=== PATIENT | male | born 1980 | race Caucasian/White ===

== ENCOUNTER → 2017-06-17 | Outpatient (CLI) | payer BC, OTHER | END | disposition home or self-care (01) | LOC: GMAJ 14:27 | PROVIDERS: ATTEND Family Medicine | DX: Z00.00 Encounter for general adult medical examination without abnormal findings (principal) ==

== ENCOUNTER → 2018-07-20 | Outpatient (CLI) | payer BC | LOC: GMAJ 15:11 | PROVIDERS: ATTEND Family Medicine | DX: E03.9 Hypothyroidism, unspecified (principal); E29.1 Testicular hypofunction ==

== ENCOUNTER → 2019-10-05 | Outpatient (CLI) | payer BC | LOC: GMAJ 10:24 | PROVIDERS: ATTEND Family Medicine | DX: E29.1 Testicular hypofunction (principal); E03.9 Hypothyroidism, unspecified ==

== ENCOUNTER → 2020-02-01 | Outpatient (CLI) | payer BC | LOC: YCFC.O 09:21 | PROVIDERS: ATTEND Family Medicine | DX: Z20.828 Contact with and (suspected) exposure to other viral communicable diseases (principal) ==